=== PATIENT | female | born 1975 | race Caucasian/White ===

== ENCOUNTER 2019-11-19 12:42 | Inpatient (IN) | payer MEDICARE ==
[~2019-11-19] VITALS: Ht 167.6 cm; Wt 74.6 kg
[2019-11-19] MEDS ORDERED: PAXIL30 MG PO (12:55)
[2019-11-19] MEDS ORDERED: PROPRANOLOL HCL20 MG PO (12:55)
[2019-11-19] MEDS ORDERED: ZYPREXA5 MG PO (12:55)
[2019-11-19] MEDS ORDERED: OMEPRAZOLE20 M1 PO (12:55)
[2019-11-19 13:31] LABS: BACTERIA MODERATE /hpf (NEGATIVE); BILIRUBIN NEGATIVE (NEGATIVE); GLUCOSE NEGATIVE (NEGATIVE); KETONE NEGATIVE (NEGATIVE); NITRITE NEGATIVE (NEGATIVE); RED CELLS - URINE 0-5 /hpf (0-5); UROBILINOGEN NORMAL (NORMAL)
[2019-11-19 13:34] LABS: CALCIUM OXALATE CRYSTALS OCC /hpf (NONE SEEN)
[2019-11-19 13:40] LABS: BASOPHILS 0.2 % (0-2); EOSINOPHILS 1.3 % (0-7); HEMATOCRIT 38.9 % (36.0-48.0); HEMOGLOBIN 12.6 g/dL (12-16); IMMATURE GRANULOCYTES 0.2 % (0-5); LYMPHOCYTES 24.1 % (15-50); MCH 25.3 pg (26.0-34.0); MCHC 32.4 g/dL (31.0-37.0); MCV 78.1 fL (80.0-100.0); MEAN PLATELET VOLUME 9.9 fL (7.4-10.4); MONOCYTES 7.4 % (2-11); NEUTROPHILS 66.8 % (40-80); PLATELET COUNT 375 10x3/uL (130-400); RBC 4.98 10x6/uL (4.00-5.40); RDW 14.4 % (11.5-14.5); WBC 16.1 10x3/uL (4.8-10.8)
[2019-11-19 13:51] LABS: CALC OSMOLALITY 275 mosm/kg (275-300); CALCIUM 9.3 mg/dL (8.5-10.1); CARBON DIOXIDE 26.4 mmol/L (21.0-32.0); CHLORIDE - SERUM 104 mmol/L (98-107); CREATININE - SERUM 0.8 mg/dL (0.6-1.3); GLUCOSE 91 mg/dL (74-106); POTASSIUM - SERUM 3.8 mmol/L (3.5-5.1); SODIUM 139 mmol/L (136-145); UREA NITROGEN 7 mg/dL (7-18); eGFR NON AFRICAN AMERICAN 82 mL/min (90-120)
[2019-11-19 13:53] LABS: ALBUMIN 3.7 g/dL (3.4-5.0); ALKALINE PHOSPHATASE 71 U/L (30-120); ALT (SGPT) 26 U/L (10-68); BILIRUBIN - TOTAL 0.18 mg/dL (0.2-1.3); PROTEIN - SERUM 7.8 g/dL (6.4-8.2)
[2019-11-19 14:43] VITALS: BP 118/67
[2019-11-19] MEDS ORDERED: ACETAMINOPHEN500 M1 PO (15:33)
[2019-11-19] MEDS ORDERED: VALIUM5 MG PO (15:34)
[2019-11-19 15:38] VITALS: BP 132/95; Ht 167.6 cm; Wt 74.6 kg
[2019-11-19 20:00] VITALS: BP 104/73
[2019-11-20] VITALS: BP 98/58
--- NOTE | 2019-11-20 | NUR ---
NOTED PT HAD TELE ORDERED EARLIER TODAY BUT NONE ARE AVAILABLE
[2019-11-20 04:00] VITALS: BP 96/57
[2019-11-20 06:18] LABS: BASOPHILS 0.3 % (0-2); EOSINOPHILS 1.9 % (0-7); HEMATOCRIT 37.5 % (36.0-48.0); HEMOGLOBIN 11.8 g/dL (12-16); IMMATURE GRANULOCYTES 0.3 % (0-5); MCH 25.1 pg (26.0-34.0); MCHC 31.5 g/dL (31.0-37.0); MCV 79.6 fL (80.0-100.0); MEAN PLATELET VOLUME 9.8 fL (7.4-10.4); MONOCYTES 7.7 % (2-11); NEUTROPHILS 55.8 % (40-80); PLATELET COUNT 347 10x3/uL (130-400); RBC 4.71 10x6/uL (4.00-5.40); RDW 14.6 % (11.5-14.5)
[2019-11-20 06:23] LABS: WBC 11.9 10x3/uL (4.8-10.8)
[2019-11-20 06:42] LABS: CALCIUM 8.5 mg/dL (8.5-10.1); CARBON DIOXIDE 27.6 mmol/L (21.0-32.0); CHLORIDE - SERUM 108 mmol/L (98-107); CREATININE - SERUM 0.6 mg/dL (0.6-1.3); GLUCOSE 86 mg/dL (74-106); MAGNESIUM - SERUM 1.9 mg/dL (1.8-2.4); PHOSPHOROUS 3.7 mg/dL (2.5-4.9); POTASSIUM - SERUM 3.9 mmol/L (3.5-5.1); SODIUM 141 mmol/L (136-145); eGFR NON AFRICAN AMERICAN > 90 mL/min (90-120)
[2019-11-20 06:57] LABS: CALC OSMOLALITY 276 mosm/kg (275-300); UREA NITROGEN 4 mg/dL (7-18)
[2019-11-20 09:36] VITALS: BP 116/69
[2019-11-20 14:24] VITALS: BP 97/58
[2019-11-20 18:45] VITALS: BP 158/83
--- NOTE | 2019-11-20 19:15 | NUR ---
WANTING PAIN MED WILL GET SOON I AM ABLE BED LOW AND LOCKED
[2019-11-20 20:00] VITALS: BP 121/74
[2019-11-21] VITALS: BP 114/64
[2019-11-21 04:00] VITALS: BP 106/67
[2019-11-21 06:21] LABS: BASOPHILS 0.4 % (0-2); EOSINOPHILS 3.1 % (0-7); HEMATOCRIT 36.2 % (36.0-48.0); HEMOGLOBIN 11.5 g/dL (12-16); IMMATURE GRANULOCYTES 0.2 % (0-5); LYMPHOCYTES 37.1 % (15-50); MCH 25.1 pg (26.0-34.0); MCHC 31.8 g/dL (31.0-37.0); MEAN PLATELET VOLUME 9.6 fL (7.4-10.4); MONOCYTES 7.2 % (2-11); PLATELET COUNT 344 10x3/uL (130-400); RBC 4.58 10x6/uL (4.00-5.40); RDW 14.6 % (11.5-14.5); WBC 9.7 10x3/uL (4.8-10.8)
[2019-11-21 06:33] LABS: CALC OSMOLALITY 276 mosm/kg (275-300); CALCIUM 8.4 mg/dL (8.5-10.1); CARBON DIOXIDE 28.8 mmol/L (21.0-32.0); CHLORIDE - SERUM 107 mmol/L (98-107); CREATININE - SERUM 0.6 mg/dL (0.6-1.3); GLUCOSE 83 mg/dL (74-106); MAGNESIUM - SERUM 1.9 mg/dL (1.8-2.4); PHOSPHOROUS 3.7 mg/dL (2.5-4.9); POTASSIUM - SERUM 3.8 mmol/L (3.5-5.1); SODIUM 141 mmol/L (136-145); UREA NITROGEN 5 mg/dL (7-18); eGFR NON AFRICAN AMERICAN > 90 mL/min (90-120)
--- NOTE | 2019-11-21 07:10 | NUR ---
REPORT RECEIVED FROM DIRECTOR OF MUSIC AND PATIENT CARE ASSUMED. PATEINT LAYING IN BED ON BACK AWAKE, ALERT AND ORIENTED X 4. PATIENT STATES THAT SHE IS IN PAIN REQUEST PAIN MED. PATIENT MEDICATED PER MAR WITH MORPHINE IV. PATIENT TOLERATED WELL. WILL CONTINUE WITH PLAN OF CARE . SR UPX 2 BED IN LOW POSITION AND CALL LIGHT IN REACH.
--- NOTE | 2019-11-21 11:37 | NUR ---
PATIENT SITTING UP IN BED WATCHING TV. PATIENT DENIES ANY NEEDS OR PAIN. WILL CONTINUE TO MONITOR. SR UPX 2 BED IN LOW POSITION AND CALL LIGHT IN REACH.
[2019-11-21] MEDS ORDERED: ULTRAM50 MG PO ×3 (14:24→15:08)
--- NOTE | 2019-11-21 14:28 | MORECARE ---
CASE MANAGEMENT DISCHARGE SUMMARY PATIENT: DELONTE PADRON UNIT: [id number] ADM DATE: 11/19/19 AGE: 44 : 75 SEX: F ROOM/BED: D.4285 AUTHOR: CAMDEN MERCHANT PHYSICIAN: REFERRING PHYSICIAN: DULCE GREENBERG MD DATE OF SERVICE: 11/21/19 Discharge Plan Patient Name: DELONTE PADRON Facility: [facility]:[place] : 1975 Planned Disposition: Home Anticipated Discharge Date: Discharge Date: Expected LOS: Initial Reviewer: [email or web address] Initial Review Date: 11/19/2019 Generated: 11/21/19 3:27 pm DCPIA - Discharge Planning Initial Assessment Updated by [email or web address]: Radha Hu on 11/21/19 2:27 pm * Is the patient Alert and Oriented? Yes * How many steps to enter\exit or inside your home? 0 * PCP KEVIN ALMANZAR * Pharmacy [facility] * Preadmission Environment Home with Family * ADLs Independent * Community resources currently utilized None * Additional services required to return to the preadmission environment? No * Can the patient safely return to the preadmission environment? Yes * Has this patient been hospitalized within the prior 30 days at any hospital? No Patient Name: DELONTE PADRON Page [phone] at 1428 All edits/amendments must be made on the electronic document DICTATION DATE: 11/21/191426 FIELD OBSERVER: MARY 11/21/191426 RPT#: [id number] DC DATE: STATUS: ADM IN [facility] [address] [place] [address] END OF REPORT
--- NOTE | 2019-11-21 14:37 | MORECARE ---
CASE MANAGEMENT DISCHARGE SUMMARY PATIENT: DELONTE PADRON UNIT: [id number] ADM DATE: 11/19/19 AGE: 44 : 75 SEX: F ROOM/BED: D.4566 AUTHOR: MAYUR,DOC PHYSICIAN: REFERRING PHYSICIAN: DULCE GREENBERG MD DATE OF SERVICE: 11/21/19 Discharge Plan Patient Name: DELONTE PADRON Facility: [facility]:[place] : 1975 Planned Disposition: Home Anticipated Discharge Date: Discharge Date: Expected LOS: Initial Reviewer: [email or web address] Initial Review Date: 11/19/2019 Generated: 11/21/19 3:37 pm Comments DCP- Discharge Planning Updated by [email or web address]: Radha Hu on 11/21/19 1:[address] Patient Name: DELONTE PADRON Admission Status: ER Accout number: [id number] Admission Date: 11-19-2019 : 1975 Admission Diagnosis: Attending: ANNE Current LOS: 2 Anticipated DC Date: Planned Disposition: Home Primary Insurance: [employer] MEDICARE PPO or HMO Discharge Planning Comments: CM met with patient to complete initial dc planning assessment. CM educated patient on the CM role and verbal consent given by patient to complete assessment. CM verified patient's address, phone number, and emergency contact phone numbers. Patient lives at home with her and children. At discharge patient plans to return home and feels this is a safe discharge. CM discussed availability of home health, rehab services, and medical equipment. Patient denied known discharge needs at this time. Transportation provider at discharge will be her . CM will continue to follow and will assist as needed with dc plans/needs. DC IMM delivered, explained, signed by the patient, and placed in chart. Signed form also left with the patient. Process Mold Technician: Radha Hu MSN,RN,CM DCPIA - Discharge Planning Initial Assessment Updated by [email or web address]: aRdha Hu on 11/21/19 2:27 pm * Is the patient Alert and Oriented? Yes * How many steps to enter\exit or inside your home? 0/12 * PCP KEVIN ALMANZAR * Pharmacy [facility] * Preadmission Environment Home with Family * ADLs Independent * Community resources currently utilized None * Additional services required to return to the preadmission environment? No * Can the patient safely return to the preadmission environment? Yes * Has this patient been hospitalized within the prior 30 days at any hospital? No Coverage Notice Reviewer: [email or web address] Tanja Hu Notice Issued Date-Time: 11/21/2019 14:20 Notice Type: Patient Choice Letter Notice Delivered To: Patient Relationship to Patient: Sill Worker Name: Delivery Method: HAND - Hand Delivered Aurora Days: Prior Verbal Notification: Recipient Understood Notice: Yes Recipient Signature: Yes Med Rec Note Co-signed by Attending: Coverage Notice Comment: DECLINED HH Reviewer: [email or web address] Tanja Hu Notice Issued Date-Time: 11/21/2019 14:20 Notice Type: IM Discharge Notice Notice Delivered To: Patient Relationship to Patient: Sill Worker Name: Delivery Method: HAND - Hand Delivered Aurora Days: Prior Verbal Notification: Recipient Understood Notice: Yes Recipient Signature: Yes Med Rec Note Co-signed by Attending: Coverage Notice Comment: DC IMM DELIVERD Last DP export: 11/21/19 1:28 p Patient Name: DELONTE PADRON Page [id number] at 1437 All edits/amendments must be made on the electronic document DICTATION DATE: 11/21/191436 ROLL SCALE MAN: MARY 11/21/191436 RPT#: [id number] DC DATE: STATUS: ADM IN [facility] [address] [place] [address] END OF REPORT
--- NOTE | 2019-11-21 15:04 | NUR ---
TEXT INTO [facility]Z SNIDER APN FOR WRITTEN SCRIPT FOR ULTRAM PER DISCHARGE SHEET. AWAITING REPLY.
--- NOTE | 2019-11-21 15:09 | NUR ---
WRITTEN SCRIPT FOR ULTRAM HERE. I AM WAITING FOR SIGNATURE TO FINISH DISCHARGE.
--- NOTE | 2019-11-21 15:23 | NUR ---
WRITTEN SCRIPT FOR ULTRAM COPIED AND PLACED INTO CHART. HARD COPY INTO PATIENT PACKET FOR DISCHARGE.
[2019-11-21] MEDS ORDERED: OMNICEF300 MG PO (17:44)
--- NOTE | 2019-11-21 19:52 | MORECARE ---
CASE MANAGEMENT DISCHARGE SUMMARY PATIENT: DELONTE PADRON UNIT: [id number] ADM DATE: 11/19/19 AGE: 44 : 75 SEX: F ROOM/BED: D.2622 AUTHOR: MAYUR,DOC PHYSICIAN: REFERRING PHYSICIAN: DULCE GREENBERG MD DATE OF SERVICE: 11/21/19 Discharge Plan Patient Name: DELONTE PADRON Facility: [facility]:[place] : 1975 Planned Disposition: Home Anticipated Discharge Date: Discharge Date: 11/21/2019 Expected LOS: Initial Reviewer: [email or web address] Initial Review Date: 11/19/2019 Generated: 11/21/19 8:52 pm Comments DCP- Discharge Planning Updated by [email or web address]: Radha Hu on 11/21/19 1:[address] Patient Name: DELONTE PADRON Admission Status: ER Accout number: [id number] Admission Date: 11-19-2019 : 1975 Admission Diagnosis: Attending: ANNE Current LOS: 2 Anticipated DC Date: Planned Disposition: Home Primary Insurance: [employer] MEDICARE PPO or HMO Discharge Planning Comments: CM met with patient to complete initial dc planning assessment. CM educated patient on the CM role and verbal consent given by patient to complete assessment. CM verified patient's address, phone number, and emergency contact phone numbers. Patient lives at home with her and children. At discharge patient plans to return home and feels this is a safe discharge. CM discussed availability of home health, rehab services, and medical equipment. Patient denied known discharge needs at this time. Transportation provider at discharge will be her . CM will continue to follow and will assist as needed with dc plans/needs. DC IMM delivered, explained, signed by the patient, and placed in chart. Signed form also left with the patient. Manager Production: Radha Hu MSN,RN,CM DCPIA - Discharge Planning Initial Assessment Updated by [email or web address]: Radha Hu on 11/21/19 2:27 pm * Is the patient Alert and Oriented? Yes * How many steps to enter\exit or inside your home? 0 * PCP KEVIN ALMANZAR * Pharmacy [facility] * Preadmission Environment Home with Family * ADLs Independent * Community resources currently utilized None * Additional services required to return to the preadmission environment? No * Can the patient safely return to the preadmission environment? Yes * Has this patient been hospitalized within the prior 30 days at any hospital? No Coverage Notice Reviewer: [email or web address] Tanja Hu Notice Issued Date-Time: 11/21/2019 14:20 Notice Type: Patient Choice Letter Notice Delivered To: Patient Relationship to Patient: Wind Turbine Engineer Name: Delivery Method: HAND - Hand Delivered Aurora Days: Prior Verbal Notification: Recipient Understood Notice: Yes Recipient Signature: Yes Med Rec Note Co-signed by Attending: Coverage Notice Comment: DECLINED HH Reviewer: [id number] Tanja Hu Notice Issued Date-Time: 11/21/2019 14:20 Notice Type: IM Discharge Notice Notice Delivered To: Patient Relationship to Patient: Wind Turbine Engineer Name: Delivery Method: HAND - Hand Delivered Aurora Days: Prior Verbal Notification: Recipient Understood Notice: Yes Recipient Signature: Yes Med Rec Note Co-signed by Attending: Coverage Notice Comment: DC IMM DELIVERD Last DP export: 11/21/19 1:37 p Patient Name: DELONTE PADRON Page [phone] at 1951 All edits/amendments must be made on the electronic document DICTATION DATE: 11/21/191951 DIETARY SERVICES MANAGER: MARY 11/21/191951 RPT#: [id number] DC DATE:11/21/19 STATUS: DIS IN [place] [address] [place] [address] END OF REPORT
== END 2019-11-21 15:59 | disposition home or self-care (01) | DRG 690 ==
LOC: D.ER 12:42 → D.M2 14:34
PROVIDERS: Family Medicine; ADMIT Family Medicine; ATTEND Family Medicine
DX: N39.0 Urinary tract infection, site not specified (principal); N20.0 Calculus of kidney; F41.8 Other specified anxiety disorders; F17.210 Nicotine dependence, cigarettes, uncomplicated; K21.9 Gastro-esophageal reflux disease without esophagitis

== ENCOUNTER 2020-11-10 17:30 | Emergency (ER) | payer MEDICARE ==
[~2020-11-10] VITALS: Ht 167.6 cm; Wt 61.4 kg
[~2020-11-10 17:30] MED LIST: ACETAMINOPHEN500 M1 PO; OMEPRAZOLE20 M1 PO; OMNICEF300 MG PO; PAXIL30 MG PO; PROPRANOLOL HCL20 MG PO; ULTRAM50 MG PO; VALIUM5 MG PO; ZYPREXA5 MG PO
[2020-11-10 17:34] VITALS: BP 105/70; Ht 167.6 cm; Wt 61.4 kg
== END 2020-11-10 20:15 | disposition home or self-care (01) ==
LOC: D.ER 17:30
DX: K62.3 Rectal prolapse (principal)

== ENCOUNTER 2020-11-25 07:47 | Day surgery (SDC) | payer MEDICARE, MEDICAID ==
[~2020-11-25] VITALS: Ht 167.6 cm; Wt 61.4 kg
[2020-11-25 08:15] LABS: BASOPHILS 0.8 % (0-2); EOSINOPHILS 0.4 % (0-7); HEMATOCRIT 44.8 % (36.0-48.0); HEMOGLOBIN 14.3 g/dL (12-16); LYMPHOCYTES 14.9 % (15-50); MCH 25.1 pg (26.0-34.0); MCHC 31.9 g/dL (31.0-37.0); MCV 78.6 fL (80.0-100.0); MEAN PLATELET VOLUME 7.6 fL (7.4-10.4); MONOCYTES 2.9 % (2-11); RBC 5.71 10x6/uL (4.00-5.40); RDW 14.9 % (11.5-14.5); WBC 19.4 10x3/uL (4.8-10.8)
[2020-11-25 08:25] LABS: CALC OSMOLALITY 277 mosm/kg (275-300); CALCIUM 9.4 mg/dL (8.5-10.1); CHLORIDE - SERUM 104 mmol/L (98-107); CREATININE - SERUM 0.7 mg/dL (0.6-1.3); GLUCOSE 111 mg/dL (74-106); POTASSIUM - SERUM 3.9 mmol/L (3.5-5.1); SODIUM 140 mmol/L (136-145); UREA NITROGEN 8 mg/dL (7-18); eGFR NON AFRICAN AMERICAN > 90 mL/min (90-120)
[2020-11-25 08:52] LABS: PLATELET COUNT 488 10x3/uL (130-400)
--- NOTE | 2020-11-25 08:57 | NUR ---
NOTED PT'S WBC COUNT 19.4. ASKED PT IF SHE HAS HAD ANY RECENT INFECTIONS OR BEEN ON ANY ANTIBIOTICS AND SHE SAID SHE HAS NOT. SHE IS HAVING RLQ PAIN X1 WEEK ACCOMPANIED WITH N/V FOR 1 WEEK. STATES TENDERNESS RLQ. ASKED PT IF SHE HAS HER APPENDIX AND SHE SAID SHE HAD APPENDECTOMY IN 2002. NOTIFIED [address] BROWN OF ALL OF THE ABOVE, WILL PROCEED WITH COLONOSCOPY TODAY. PT NOTIFIED.
[2020-11-25] MEDS ORDERED: GABAPENTIN300 MG PO (09:01)
[2020-11-25] MEDS ORDERED: ZANAFLEX4 MG PO (09:01)
[2020-11-25] MEDS ORDERED: HYDROCODONE-AC1 EAC2 PO (09:01)
[2020-11-25 09:16] VITALS: BP 120/76; Ht 167.6 cm; Wt 61.4 kg
--- NOTE | 2020-11-25 15:36 | OP ---
PATIENT NAME: DELONTE PADRON MEDICAL RECORD: [id number] :[birth year] LOCATION:D.OPS ADMISSION DATE: SURGEON: OREN BROWN MD DATE OF OPERATION: 11/25/2020 PREOPERATIVE DIAGNOSES: 1. Rectal prolapse. 2. Chronic diarrhea. POSTOPERATIVE DIAGNOSES: 1. Rectal prolapse. 2. Chronic diarrhea. 3. No evidence of colitis or proctitis. 4. Four sessile polyps, which appeared to be adenomatous and that ranged from 5-mm to 9-mm. 5. Adequate colonic prep. 6. Ulcerations within the lower rectum consistent with ulcerations due to rectal prolapse. PROCEDURES: 1. Total colonoscopy to cecum. 2. Hot-biopsy forceps polypectomies times 4. 3. Random colon and rectal biopsies to rule out colitis. 4. Stool studies including culture. SURGEON: Oren Brown MD HOT MILL OBSERVER: None. BLOOD LOSS: Minimal. ANESTHESIA: IV sedation. COMPLICATIONS: None. The risks, possible complications, and alternatives to the procedure were explained to the patient. She elects to proceed. ENDOSCOPIC COURSE: The patient was conveyed to the endoscopy suite electively on 11/25/2020. IV sedation was induced by the anesthesia staff. The patient was placed in the Gao position. A digital rectal examination was performed. Colonoscope was inserted through the anus. It was easily advanced to the cecum. The prep was adequate. I slowly withdrew the endoscope. There was an area at the appendiceal orifice, which may or may not represent a polyp. I continued to withdraw the endoscope. A combination of normal imaging and narrow band imaging were utilized. Pullback was greater than a 16-minute pullback. Random colon and rectal biopsies were obtained. Stool cultures were obtained. Four hot biopsy forceps polypectomies were performed. A retroflex view was obtained of the rectum. I then unretroflexed the scope and removed it under direct vision. I will see the patient in my office in 2 to 3 weeks. If any of the polyps are adenomatous, then I would recommend a surveillance colonoscopy in 1 year and then every 3 years for the rest of the patient's life. With regard to the rectal prolapse, I would like to schedule her for a rectal prolapse operation. OPERATIVE REPORT [id number] DELONTE PADRON TRANSINT:[id number] Voice Confirmation ID: [id number] DOCUMENT ID: [id number] OREN BROWN MD at 1536 CC: TESS DONOVAN MD [id number] DICTATION DATE: 11/25/20 1034 CREDIT BALANCE SPECIALIST: 11/25/20 1053 REG [facility] [address] [place] [place] [id number]
--- NOTE | 2020-11-25 17:26 | NUR ---
1055 PT VOICED CONCERNS RELATED TO ELEVATED WBC COUNT. DR. BROWN STATES TO CALL PCP & SEE IF PT CAN BE SEEN TODAY. [facility] CALLED & STATES HAS NO OPENINGS TO DAY OR TOMORROW. DR. BROWN & PT INFORMED. 1115 UP TO BATHROOM. VOIDED. BACK TO BED. IV DC'ED. Don GAR R.N. 1125 DRESSED. AWAKE & ALERT. PROVIDED WITH D/C INSTRUCTIONS INCLUDING MED REC., RTC APPT., & [facility] POST ENDOSCOPY D/C INSTRUCTIONS. PT VOICED UNDERSTANDING. TO PRIVATE CAR PER WHEELCHAIR BY THIS NURSE. [facility] MR. PADRON & SON ELI. Don GAR R.N.
== END 2020-11-25 11:25 | disposition home or self-care (01) ==
LOC: D.OPS 07:47
PROVIDERS: Anesthesiology; ATTEND Surgery
DX: K62.3 Rectal prolapse (principal); R19.7 Diarrhea, unspecified; K63.5 Polyp of colon; K62.6 Ulcer of anus and rectum; K52.9 Noninfective gastroenteritis and colitis, unspecified; I10 Essential (primary) hypertension; F17.200 Nicotine dependence, unspecified, uncomplicated

== ENCOUNTER 2020-11-27 11:50 | Emergency (ER) | payer MEDICARE, MEDICAID ==
[~2020-11-27] VITALS: Ht 167.6 cm; Wt 61.4 kg
[~2020-11-27 11:50] MED LIST changes: +GABAPENTIN300 MG PO; +HYDROCODONE-AC1 EAC2 PO; +ZANAFLEX4 MG PO
[2020-11-27 11:56] VITALS: Ht 167.6 cm; Wt 61.4 kg
[2020-11-27 12:15] LABS: BASOPHILS 1.3 % (0-2); EOSINOPHILS 0.9 % (0-7); HEMATOCRIT 43.3 % (36.0-48.0); LYMPHOCYTES 33.8 % (15-50); MCH 25.5 pg (26.0-34.0); MCHC 32.3 g/dL (31.0-37.0); MCV 79.1 fL (80.0-100.0); MEAN PLATELET VOLUME 7.5 fL (7.4-10.4); MONOCYTES 4.6 % (2-11); NEUTROPHILS 59.4 % (40-80); PLATELET COUNT 413 10x3/uL (130-400); RBC 5.48 10x6/uL (4.00-5.40); RDW 14.7 % (11.5-14.5); WBC 15.2 10x3/uL (4.8-10.8)
[2020-11-27 12:22] LABS: CALC OSMOLALITY 267 mosm/kg (275-300); CALCIUM 9.2 mg/dL (8.5-10.1); CARBON DIOXIDE 22.9 mmol/L (21.0-32.0); CHLORIDE - SERUM 101 mmol/L (98-107); CREATININE - SERUM 0.7 mg/dL (0.6-1.3); GLUCOSE 95 mg/dL (74-106); POTASSIUM - SERUM 3.6 mmol/L (3.5-5.1); SODIUM 135 mmol/L (136-145); UREA NITROGEN 8 mg/dL (7-18); eGFR NON AFRICAN AMERICAN > 90 mL/min (90-120)
[2020-11-27 12:31] LABS: ALBUMIN 4.2 g/dL (3.4-5.0); ALKALINE PHOSPHATASE 80 U/L (30-120); ALT (SGPT) 16 U/L (10-68); AMYLASE - SERUM 49 U/L (25-115); BILIRUBIN - TOTAL 0.45 mg/dL (0.2-1.3); LIPASE 73 U/L (73-393); PROTEIN - SERUM 8.1 g/dL (6.4-8.2); TROPONIN-I < 0.017 ng/mL (0.000-0.060)
[2020-11-27 12:38] LABS: BILIRUBIN NEGATIVE (NEGATIVE); KETONE NEGATIVE mg/dL (< 1+); NITRITE NEGATIVE (NEGATIVE); SQUAMOUS EPITHELIAL 2 HPF (0-4); UROBILINOGEN 3 mg/dL (< 2); WHITE CELLS - URINE 6 HPF (0-4)
[2020-11-27 15:04] VITALS: BP 119/62
== END 2020-11-27 20:04 | disposition home or self-care (01) ==
LOC: D.ER 11:50
PROVIDERS: Family Medicine
DX: K62.89 Other specified diseases of anus and rectum (principal); R10.9 Unspecified abdominal pain